=== PATIENT | male | born 1955 | race Caucasian/White ===

== ENCOUNTER → 2016-11-12 | Outpatient (CLI) | payer BC | LOC: HEART 5 15:29 | DX: R01.1 Cardiac murmur, unspecified (principal); R94.31 Abnormal electrocardiogram [ECG] [EKG] | CPT/HCPCS: 93306 ==

== ENCOUNTER → 2020-08-01 | Outpatient (CLI) | payer MEDICARE, OTHER ==
[~2020-08-01] MED LIST: ASPIRIN CHEWABL81 MG PO; ATORVASTATIN CA20 MG PO; CATAPRES0.3 MG PO; CLOPIDOGREL75 MG PO; COZAAR 50MG TAB50 MG PO; HYDROCHLOROTHIA25 MG PO; KLONOPIN TAB 00.5 MG PO
== END ==
LOC: US 13:30
DX: N18.9 Chronic kidney disease, unspecified (principal); N28.1 Cyst of kidney, acquired

== ENCOUNTER → 2021-11-06 | Outpatient (CLI) | payer MEDICARE, OTHER | LOC: ECHO 11:15 → NM 13:00 | DX: R94.31 Abnormal electrocardiogram [ECG] [EKG] (principal) | CPT/HCPCS: ECHO; 78452; 93017; 93306; A9502 ==